=== PATIENT | female | born 2000 | race Caucasian/White ===

== ENCOUNTER 2024-01-26 06:32 | Inpatient (IN) ==
[2024-01-26] MEDS ORDERED: REGLAN INJ 10 MG VIAL IVP PRN (06:55)
[2024-01-26] MEDS ORDERED: ZOFRAN INJ 4 MG VIAL IVP PRN (06:55)
[2024-01-26] MEDS ORDERED: OXYTOCIN 20 UNIT/1,000 ML-NS 20 UNIT/1,000 ML PLAST..BAG IV PRN (06:55)
[2024-01-26 06:56] VITALS: BMI 24.2
[2024-01-26 06:59] LABS: BILIRUBIN,URINE NEGATIVE (NEGATIVE); BLOOD/HEMOGLOBIN,URINE 5+ (NEGATIVE); GLUCOSE, URINE NEGATIVE (NEGATIVE); KETONES,URINE 3+ (NEGATIVE); LEUKOCYTE ESTERASE ,URINE 3+ (NEGATIVE); NITRITES,URINE NEGATIVE (NEGATIVE); PROTEIN,URINE 3+ (NEGATIVE); UROBILINOGEN,URINE 1+ (NORMAL)
[2024-01-26] MEDS ORDERED: LR 1,000 ML IV 1,000 ML IV SCH (07:00)
[2024-01-26 07:08] LABS: APPEARANCE,URINE HAZY (CLEAR); BACTERIA,URINE TRACE /HPF (NEGATIVE); COLOR,URINE YELLOW (YELLOW); RBC,URINE TNTC /HPF (0-3); SQUAMOUS EPITHELIAL CELL,UR MANY /HPF (NEGATIVE)
[2024-01-26 07:09] LABS: TRICHOMONAS,URINE FEW /HPF (NEGATIVE)
[2024-01-26 07:15] LABS: AMNISURE ROM TEST NO MEMBRANES RUPTURE (NO RUPTURE)
[2024-01-26] MEDS: NUBAIN INJ 20 MG AMP IVP PRN (07:20)
[2024-01-26 07:31] LABS: BASOPHILS % (AUTO) 0.4 % (0.2-1.0); EOSINOPHILS # (AUTO) 0.1 x10^3/uL (0.0-0.2); EOSINOPHILS % (AUTO) 0.7 % (0.9-2.9); HEMATOCRIT 36.7 % (36.0-47.0); HEMOGLOBIN 12.6 g/dL (12.0-16.0); LYMPHOCYTES # (AUTO) 1.3 X10^3/uL (1.3-2.9); LYMPHOCYTES % (AUTO) 12.4 % (21.0-51.0); MEAN CORPUSCULAR HEMOGLOBIN 28.7 pg (27.0-34.0); MEAN CORPUSCULAR HGB CONC 34.4 g/dL (33.0-35.0); MEAN CORPUSCULAR VOLUME 83.6 fL (80.0-100.0); MEAN PLATELET VOLUME 10.2 fL (7.4-11.0); MONOCYTES # (AUTO) 0.8 x10^3/uL (0.3-0.8); MONOCYTES % (AUTO) 7.1 % (0.0-13.0); NEUTROPHILS # (AUTO) 8.6 x10^3/uL (2.2-4.8); NEUTROPHILS % (AUTO) 79.4 % (42.0-75.0); PLATELET COUNT 212 X10^3/uL (150.0-450.0); RED BLOOD COUNT 4.39 X10^6/uL (3.5-5.4); WHITE BLOOD COUNT 10.8 X10^3/uL (3.6-10.0)
[2024-01-26 07:40] LABS: ALANINE AMINOTRANSFERASE 14 Units/L (12-78); ALBUMIN 2.4 g/dL (3.4-5.0); ALKALINE PHOSPHATASE 166 Units/L (46-116); ASPARTATE AMINO TRANSFERASE 18 Units/L (15-37); BLOOD UREA NITROGEN 7 mg/dL (7-18); CALCIUM 8.4 mg/dL (8.5-10.1); CARBON DIOXIDE 21.9 mmol/L (21-32); CHLORIDE 104 mmol/L (98-107); COR CA(FOR HYPOALB) 9.7 mg/dL (8.5-10.1); CREATININE 0.54 mg/dL (0.55-1.02); GLUCOSE 76 mg/dL (65-99); POTASSIUM 3.6 mmol/L (3.5-5.1); SODIUM 138 mmol/L (136-145); TOTAL PROTEIN 6.6 g/dL (6.4-8.2); eGFR NON BLACK RACES > 60 (>60)
[2024-01-26] MEDS ORDERED: BETADINE SOLN ONE (07:58)
[2024-01-26] MEDS: LR 1,000 ML IV 1,000 ML IV ONE ×3 (10:03→12:46)
[2024-01-26] MEDS: NUBAIN INJ 200 MG VIAL MULTIDOSE ONE (10:16)
[2024-01-26] MEDS: NS 1,000 ML IV 1,000 ML IV SCH (10:58)
[2024-01-26] MEDS: D5 1/2 NS 1,000 ML 1,000 ML IV SCH (10:58)
[2024-01-26] MEDS: BRETHINE INJ 1 MG VIAL SC ONE (11:05)
[2024-01-26] MEDS: VERSED ONE (12:40)
[2024-01-26] MEDS: FENTANYL VIAL INJ 100 mcg ONE ×2 (12:40→12:54)
[2024-01-26] MEDS ORDERED: SUPRANE ONE (12:46)
[2024-01-26] MEDS: PITOCIN ONE (12:52)
[2024-01-26] MEDS: TORADOL 30 MG VIAL ONE (12:57)
[2024-01-26] MEDS: DIPRIVAN VIAL 20 ML ONE (12:57)
[2024-01-26] MEDS: BRIDION ONE (12:57)
[2024-01-26] MEDS: OFIRMEV IV 1000 MG VIAL 1,000 MG/100 ML VIAL IV ONE (12:57)
[2024-01-26] MEDS: ZEMURON 100 MG VIAL ONE (12:57)
[2024-01-26] MEDS ORDERED: BRIDION ONE (13:19)
[2024-01-26] MEDS: NOZIN NASAL SANITIZER TP ONE (13:22)
[2024-01-26] MEDS: PITOCIN IVP ONE (14:11)
[2024-01-26] MEDS ORDERED: MYLICON TAB 80 MG CHEW PO PRN (14:25)
[2024-01-26] MEDS ORDERED: BENADRYL INJ 50 MG VIAL IVP PRN (14:25)
[2024-01-26] MEDS ORDERED: D5 1/2 NS 1,000 ML 1,000 ML with PITOCIN 20 UNITS IV SCH (15:00)
[2024-01-26] MEDS: MORPHINE SULFATE INJ 4 MG IVP PRN (15:30)
[2024-01-26] MEDS: TORADOL 30 MG VIAL IVP PRN (17:39)
[2024-01-26] MEDS: ADACEL or BOOSTRIX TDaP VACCINE IM ONE (20:13)
[2024-01-27 05:05] LABS: HEMATOCRIT 33.1 % (36.0-47.0); HEMOGLOBIN 11.3 g/dL (12.0-16.0)
[2024-01-27] MEDS: MOTRIN TAB 800 MG PO PRN (08:54)
[2024-01-27] MEDS: PRENATAL PLUS PO SCH (08:54)
[2024-01-27] MEDS ORDERED: CONSULT PHARMACY - POTASSIUM & MAGNESIUM XX SCH (09:00)
[2024-01-27] MEDS: PERCOCET TAB 5/325 MG PO PRN (23:24)
[2024-01-28 04:02] VITALS: BP 112/69; PULSE 91; RESP 20; TEMP 98.9; O2SAT 98
== END 2024-01-28 12:50 | disposition home or self-care (01) | DRG 833 ==
LOC: ER 06:32 → LD 06:55 → MED/SURG 14:08
PROVIDERS: ADMIT Obstetrics & Gynecology Obstetrics; ATTEND Obstetrics & Gynecology Obstetrics